=== PATIENT | male | born 1935 | race Caucasian/White ===

== ENCOUNTER 2023-12-17 06:12 | Day surgery (SDC) | payer OTHER, SELFPAY ==
[2023-11-27 10:41] VITALS: BMI 25.1
[2023-12-17] VITALS (7 sets, daily range): BP systolic 114–154; BP diastolic 64–81; BMI 25.1
[2023-12-17 06:52] LABS: Hematocrit 48.6 % (39.0-52.0); Hemoglobin 16.8 g/dL (13.0-18.0); Mean Corp Hgb Conc. 34.6 g/dL (33.0-37.0); Mean Corpuscular Hgb 30.5 pg (27.0-31.0); Mean Corpuscular Volume 88.2 fL (80.0-94.0); Mean Platelet Volume 9.8 fL (7.4-10.4); Platelet Count 190 10^3/uL (130-400); Red Blood Cell Count 5.51 10^6/uL (4.70-6.10); Red Cell Dist. Width 13.3 % (11.5-14.5)
[2023-12-17] MEDS: TYLENOL 1000 MG PO (06:55)
[2023-12-17] MEDS: NORMOSOL-R 1000 IV (06:55)
[2023-12-17 07:05] LABS: Blood Urea Nitrogen 21 mg/dl (9-20); Carbon Dioxide 24 mmol/L (22-30); Chloride 107 mmol/L (98-107); Estimated Creatinine Clearance 57 ml/min; Glucose 101 mg/dl (70-99); Potassium 4.7 mmol/L (3.5-5.1); Sodium 141 mmol/L (135-145); eGFR > 60.00
== END 2023-12-17 10:20 | disposition home or self-care (01) ==
LOC: SDS 06:12
PROVIDERS: ATTENDING PHYSICIAN Surgery; FAMILY PHYSICIAN Family Medicine
DX: K40.90 Unilateral inguinal hernia, without obstruction or gangrene, not specified as recurrent (principal); D17.6 Benign lipomatous neoplasm of spermatic cord
CPT/HCPCS: 49505; 80048; 85027; 93005; C1781

== ENCOUNTER → 2024-03-31 12:00 | Outpatient (REF) | payer OTHER, SELFPAY | LOC: DHSLP 12:00 | PROVIDERS: ATTENDING PHYSICIAN Internal Medicine Critical Care Medicine; FAMILY PHYSICIAN Family Medicine | DX: G47.33 Obstructive sleep apnea (adult) (pediatric) (principal); R06.83 Snoring | CPT/HCPCS: 95800 ==